=== PATIENT | male | born 1960 | race Caucasian/White ===

== ENCOUNTER 2020-05-11 15:36 | Emergency (ER) | payer SELFPAY ==
[2020-05-11] MEDS ORDERED: Boostrix 0.5 ML (Tdap) VIAL ONE (15:57)
[2020-05-11] MEDS ORDERED: Bacitracin 1 PK ONE (15:57)
== END 2020-05-11 16:04 | disposition home or self-care (01) ==
LOC: BURERS 15:36
DX: S01.01XA Laceration without foreign body of scalp, initial encounter (principal); W23.1XXA Caught, crushed, jammed, or pinched between stationary objects, initial encounter
CPT/HCPCS: 12002; 90471; 90715